=== PATIENT | male | born 1960 | race Two or more races ===

== ENCOUNTER 2016-11-20 19:25 | Inpatient (IN) | payer OTHER ==
[2016-11-20 21:53] VITALS: BMI 31.7
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
[2016-11-20] MEDS ORDERED: MENTHOL/PHENOL 1 EACH UD MM PRN (22:08)
[2016-11-20] MEDS ORDERED: NICOTINE POLACRILEX 2 MG GUM BC PRN (22:08)
[2016-11-20] MEDS ORDERED: MAGNESIUM CITRATE 300 ML BOTTLE PO PRN (22:08)
[2016-11-20] MEDS ORDERED: MAGNESIUM HYDROX 2400MG/30ML ORAL SUSPENSION 30 ML CUP PO PRN (22:08)
[2016-11-20] MEDS ORDERED: chlordiazePOXIDE HCL 25 MG CAPSULE PO PRN (22:08)
[2016-11-20] MEDS ORDERED: diphenhydrAMINE HCL 50 MG CAPSULE PO PRN (22:08)
[2016-11-20] MEDS ORDERED: guaiFENesin/D-METHORPHAN HB 10 ML UNIT-DOSE CUPS PO PRN (22:08)
[2016-11-20] MEDS ORDERED: ACETAMINOPHEN 325 MG TABLET (FP) PO PRN (22:08)
[2016-11-20] MEDS ORDERED: P-EPHED 60MG/TRIPROLIDI 2.5MG TABLET PO PRN (22:08)
[2016-11-20] MEDS ORDERED: METHADONE HCL 10 MG TABLET (FOR DETOX USE ONLY) PO ONE ×2 (22:08→23:00)
[2016-11-20] MEDS ORDERED: MAG HYDROX/AL HYDROX/SIMETH 30 ML UNIT-DOSE CUP PO PRN (22:08)
[2016-11-20] MEDS ORDERED: LOPERAMIDE HCL 2 MG CAPSULE PO PRN (22:08)
[2016-11-21] MEDS ORDERED: METHADONE HCL 10 MG TABLET (FOR DETOX USE ONLY) ONE (00:50)
[2016-11-21] MEDS: chlordiazePOXIDE HCL 25 MG CAPSULE PO SCH ×5 (00:54→22:04)
[2016-11-21] MEDS ORDERED: diazePAM 5 MG TABLET PO PRN (02:54)
[2016-11-21] MEDS ORDERED: METHADONE HCL 10 MG TABLET (FOR DETOX USE ONLY) PO ONE ×3 (02:54→23:00)
[2016-11-21 09:54] LABS: MCH 29.8 pg (25.7-33.7); MCHC 34.2 g/dl (32.0-35.9); MEAN CELL VOLUME 87.2 fl (80-96); MEAN PLT VOLUME 10.2 fl (7.5-11.1); PLATELET COUNT 181 K/MM3 (134-434); RDW 13.1 % (11.9-15.9); WHITE BLOOD COUNT 6.9 K/mm3 (4.0-10.0)
[2016-11-21] MEDS ORDERED: ASPIRIN 81 MG CHEWABLE TABLETS PO SCH (10:00)
[2016-11-21] MEDS ORDERED: METHADONE HCL 10 MG TABLET (FOR DETOX USE ONLY) PO SCH (10:00)
[2016-11-21] MEDS ORDERED: NICOTINE 21 MG/24 HOURS TOPICAL PATCH TD SCH (10:00)
[2016-11-21] MEDS ORDERED: PRENATAL VITAMINS W/ FOLIC ACID TABLET (FP) PO SCH (10:00)
[2016-11-21 10:29] LABS: ALBUMIN 3.5 g/dl (3.4-5.0); ALK PHOS 86 U/L (45-117); ANION GAP 8 (8-16); BILIRUBIN,TOTAL 0.3 mg/dL (0.2-1.0); CALCIUM 8.9 mg/dL (8.5-10.1); CO2 29 mmol/L (21-32); CREATININE 0.9 mg/dL (0.7-1.3); GLUCOSE,RANDOM 87 mg/dL (74-106); SGOT/AST 14 U/L (15-37); SGPT/ALT 17 U/L (12-78); TOT PROT 6.4 g/dl (6.4-8.2)
[2016-11-21] MEDS: metFORMIN HCL 500 MG TABLET (FP) PO SCH ×2 (10:32→17:19)
--- NOTE | 2016-11-21 11:48 | PN ---
[facility] CIWA - CIWA Score Nausea/Vomitin-No Nausea/No Vomiting Muscle Tremors: 4-Moderate,w/Arms Extend Anxiety: 4-Mod. Anxious/Guarded Agitation: 4-Moderately Restless Paroxysmal Sweats: 1-Minimal Palms Moist Orientation: 0-Oriented Tacttile Disturbances: 3-Moderate Itch/Numb/Burn Auditory Disturbances: 0-None Visual Disturbances: 0-None Headache: 0-None Present CIWA-Ar Total Score: 16 S COWS - Scale Resting Pulse: 0= [place] 80 or Below Sweatin= Chills/Flushing Restless Observation: 3= Extraneous Movement Pupil Size: 2= Moderately Dilated Bone or Joint Aches: 4=Acute Joint/Muscle Pain Runny Nose/ Eye Tearin= Nasal Congestion GI Upset > 30mins: 1= Stomach Cramp Tremor Observation of Outstretched Hands: 1= Tremor [place], Not Seen Yawning Observation: 2= >3x During Session Anxiety or Irritability: 2=Irritable/Anxious Goose Flesh Skin: 0=Smooth Skin COWS Score: 17 [facility] Progress Note (SOAP) Subjective: ANXIETY,SWEATS,MUSCLE ACHES Objective: 11/21/16 12:18 Vital Signs Temperature 97.1 F L 11/21/16 11:47 Pulse Rate 58 L 11/21/16 11:47 Respiratory Rate 19 11/21/16 11:47 Blood Pressure 150/85 11/21/16 11:47 O2 Sat by Pulse Oximetry (%) Laboratory Last Values WBC 6.9 K/mm3 (4.0-10.0) 11/21/16 07:00 RBC 4.63 M/mm3 (4.00-5.60) 11/21/16 07:00 Hgb 13.8 GM/dL (11.7-16.9) 11/21/16 07:00 Hct 40.4 % (35.4-49) 11/21/16 07:00 MCV 87.2 fl (80-96) 11/21/16 07:00 MCHC 34.2 g/dl (32.0-35.9) 11/21/16 07:00 RDW 13.1 % (11.9-15.9) 11/21/16 07:00 Plt Count 181 K/MM3 (134-434) 11/21/16 07:00 MPV 10.2 fl (7.5-11.1) 11/21/16 07:00 Sodium 144 mmol/L (136-145) 11/21/16 07:00 Potassium 4.1 mmol/L (3.5-5.1) 11/21/16 07:00 Chloride 107 mmol/L (98-107) 11/21/16 07:00 Carbon Dioxide 29 mmol/L (21-32) 11/21/16 07:00 Anion Gap 8 (8-16) 11/21/16 07:00 BUN 20 mg/dL (7-18) H 11/21/16 07:00 Creatinine 0.9 mg/dL (0.7-1.3) 11/21/16 07:00 Creat Clearance w eGFR > 60 (>60) 11/21/16 07:00 Random Glucose 87 mg/dL (74-106) 11/21/16 07:00 Calcium 8.9 mg/dL (8.5-10.1) 11/21/16 07:00 Total Bilirubin 0.3 mg/dL (0.2-1.0) D 11/21/16 07:00 AST 14 U/L (15-37) L D 11/21/16 07:00 ALT 17 U/L (12-78) D 11/21/16 07:00 Alkaline Phosphatase 86 U/L (45-117) 11/21/16 07:00 Total Protein 6.4 g/dl (6.4-8.2) 11/21/16 07:00 Albumin 3.5 g/dl (3.4-5.0) 11/21/16 07:00 Assessment: 11/21/16 12:18 WITHDRAWAL SX Plan: CONTINUE DETOX
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
[2016-11-21] MEDS: CYCLOBENZAPRINE HCL 10 MG TABLET (FP) PO SCH ×2 (15:01→22:04)
[2016-11-21 20:34] LABS: URINE APPEARANCE CLEAR; URINE BILIRUBIN NEGATIVE (NEGATIVE); URINE BLOOD NEGATIVE (NEGATIVE); URINE COLOR LTYELLOW; URINE GLUCOSE (UA) NEGATIVE (NEGATIVE); URINE KETONE NEGATIVE (NEGATIVE); URINE NITRITE NEGATIVE (NEGATIVE); URINE PROTEIN NEGATIVE (NEGATIVE); URINE UROBILINOGEN NEGATIVE E.U./dl (0.2-1.0)
[2016-11-21 20:41] LABS: URINE LEUK ESTERASE TRACE (NEGATIVE)
[2016-11-21 20:46] LABS: URINE RBC <1 /hpf (0-3); URINE WBC 1 /hpf (3-5)
[2016-11-21] MEDS ORDERED: THIAMINE HCL 100 MG TABLET (FP) PO SCH (22:00)
[2016-11-21 22:42] VITALS: BP 150/88; PULSE 66; TEMP 97.6
--- NOTE | 2016-11-21 23:34 | EKG ---
Test Reason : Blood Pressure : / mmHG Vent. Rate : 049 BPM Atrial Rate : 049 BPM P-R Int : 214 ms QRS Dur : 098 ms QT Int : 460 ms P-R-T Axes : 028 057 027 degrees QTc Int : 415 ms SINUS BRADYCARDIA WITH 1ST DEGREE A-V BLOCK OTHERWISE NORMAL ECG NO PREVIOUS ECGS AVAILABLE Confirmed by PAIGE DIAZ, JIMI ([id number]) on 11/21/2016 11:34:08 PM Referred By: Duncan Mooney Confirmed By:JIMI GIBSON MD
[2016-11-22] MEDS: CYCLOBENZAPRINE HCL 10 MG TABLET (FP) PO SCH (06:13)
[2016-11-22] MEDS: chlordiazePOXIDE HCL 25 MG CAPSULE PO SCH (06:14)
--- NOTE | 2016-11-22 09:24 | DS ---
[facility] Detox Discharge Summary Admission Date: 11/20/16 Discharge Date: 11/22/16 - History Present History: Alcohol Dependence, Cocaine Dependence, Opioid Dependence Additional Comments: PT DECLINED TO CONTINUE WITH DETOX STATING THAT HE IS CRAVING AND WITHDRAWING AND STAYING HERE CANNOT HELP HIM. 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 ALERT O X3. PT SIGNED OUT AMA Pertinent Past History: TYPE 2 DM COPD - Physical Exam Results Vital Signs: Vital Signs Temperature 97.6 F 11/21/16 22:42 Pulse Rate 66 11/21/16 22:42 Respiratory Rate 18 11/22/16 03:30 Blood Pressure 150/88 11/21/16 22:42 O2 Sat by Pulse Oximetry (%) Pertinent Admission Physical Exam Findings: WITHDRAWAL SX Laboratory Last Values WBC 6.9 K/mm3 (4.0-10.0) 11/21/16 07:00 RBC 4.63 M/mm3 (4.00-5.60) 11/21/16 07:00 Hgb 13.8 GM/dL (11.7-16.9) 11/21/16 07:00 Hct 40.4 % (35.4-49) 11/21/16 07:00 MCV 87.2 fl (80-96) 11/21/16 07:00 MCHC 34.2 g/dl (32.0-35.9) 11/21/16 07:00 RDW 13.1 % (11.9-15.9) 11/21/16 07:00 Plt Count 181 K/MM3 (134-434) 11/21/16 07:00 MPV 10.2 fl (7.5-11.1) 11/21/16 07:00 Sodium 144 mmol/L (136-145) 11/21/16 07:00 Potassium 4.1 mmol/L (3.5-5.1) 11/21/16 07:00 Chloride 107 mmol/L (98-107) 11/21/16 07:00 Carbon Dioxide 29 mmol/L (21-32) 11/21/16 07:00 Anion Gap 8 (8-16) 11/21/16 07:00 BUN 20 mg/dL (7-18) H 11/21/16 07:00 Creatinine 0.9 mg/dL (0.7-1.3) 11/21/16 07:00 Creat Clearance w eGFR > 60 (>60) 11/21/16 07:00 POC Glucometer 81 UNITS (()) 11/21/16 16:27 Random Glucose 87 mg/dL (74-106) 11/21/16 07:00 Calcium 8.9 mg/dL (8.5-10.1) 11/21/16 07:00 Total Bilirubin 0.3 mg/dL (0.2-1.0) D 11/21/16 07:00 AST 14 U/L (15-37) L D 11/21/16 07:00 ALT 17 U/L (12-78) D 11/21/16 07:00 Alkaline Phosphatase 86 U/L (45-117) 11/21/16 07:00 Total Protein 6.4 g/dl (6.4-8.2) 11/21/16 07:00 Albumin 3.5 g/dl (3.4-5.0) 11/21/16 07:00 Urine Color Ltyellow 11/21/16 19:45 Urine Appearance Clear 11/21/16 19:45 Urine pH 6.0 (5.0-8.0) 11/21/16 19:45 Ur Specific [place] 1.012 (1.001-1.035) 11/21/16 19:45 Urine Protein Negative (NEGATIVE) 11/21/16 19:45 Urine Glucose (UA) Negative (NEGATIVE) 11/21/16 19:45 Urine Ketones Negative (NEGATIVE) 11/21/16 19:45 Urine Blood Negative (NEGATIVE) 11/21/16 19:45 Urine Nitrite Negative (NEGATIVE) 11/21/16 19:45 Urine Bilirubin Negative (NEGATIVE) 11/21/16 19:45 Urine Urobilinogen Negative E.U./dl (0.2-1.0) 11/21/16 19:45 Ur Leukocyte Esterase Trace (NEGATIVE) H 11/21/16 19:45 Urine RBC <1 /hpf (0-3) 11/21/16 19:45 Urine WBC 1 /hpf (3-5) 11/21/16 19:45 Ur Epithelial Cells Rare /hpf (FEW) 11/21/16 19:45 RPR Titer Nonreactive (NONREACTIVE) 11/21/16 07:00 - Medication Discharge Medications: Ambulatory Orders Aspirin [ASA -] 81 mg PO DAILY 11/20/16 Metformin HCl [Glucophage -] 500 mg PO BID 11/20/16 - Diagnosis (1) Alcohol dependence with uncomplicated withdrawal Current Visit: Yes Status: Acute (2) Cocaine dependence Current Visit: Yes Status: Acute Qualifiers: Substance use status: uncomplicated Qualified Code(s): F14.20 - Cocaine dependence, uncomplicated (3) Nicotine dependence Current Visit: Yes Status: Chronic Qualifiers: Nicotine product type: cigarettes Substance use status: uncomplicated Qualified Code(s): F17.210 - Nicotine dependence, cigarettes, uncomplicated (4) Opioid dependence with withdrawal Current Visit: Yes Status: Acute (5) Diabetes mellitus type II, controlled Current Visit: Yes Status: Chronic Qualifiers: Diabetes mellitus complication status: without complication Diabetes mellitus alf insulin use: without alf use Qualified Code(s): E11.9 - Type 2 diabetes mellitus without complications - AMA Did Patient Leave Against Medical Advice: Yes (AMA)
[2016-11-22] MEDS ORDERED: cloNIDine HCL 0.1 MG TABLET PO SCH (10:00)
[2016-11-22] MEDS ORDERED: METHADONE HCL 5 MG TABLET (FOR DETOX USE ONLY) PO SCH (10:00)
[2016-11-22] MEDS ORDERED: METHADONE HCL 10 MG TABLET (FOR DETOX USE ONLY) PO ONE (10:00)
[2016-11-22] MEDS ORDERED: chlordiazePOXIDE 5 MG CAPSULE PO SCH (23:00)
[2016-11-23] MEDS ORDERED: METHADONE HCL 5 MG TABLET (FOR DETOX USE ONLY) PO ONE (10:00)
[2016-11-23] MEDS ORDERED: chlordiazePOXIDE HCL 10 MG CAPSULE PO SCH (23:00)
[2016-11-24] MEDS ORDERED: METHADONE HCL 10 MG TABLET (FOR DETOX USE ONLY) PO SCH (10:00)
[2016-11-24] MEDS ORDERED: METHADONE HCL 5 MG TABLET (FOR DETOX USE ONLY) PO ONE (10:00)
[2016-11-25] MEDS ORDERED: METHADONE HCL 5 MG TABLET (FOR DETOX USE ONLY) PO SCH (06:00)
[2016-11-25] MEDS ORDERED: METHADONE HCL 10 MG TABLET (FOR DETOX USE ONLY) PO ONE (10:00)
[2016-11-26] MEDS ORDERED: METHADONE HCL 5 MG TABLET (FOR DETOX USE ONLY) PO ONE (06:00)
== END 2016-11-22 09:03 | disposition left against medical advice (07) | DRG 770 ==
LOC: YASAS 19:25 → Y3N 22:57
PROVIDERS: ADMIT Internal Medicine; ATTEND Internal Medicine
PROC: HZ2ZZZZ Detoxification Services for Substance Abuse Treatment (ICD-10-PCS; principal; 2016-11-22)
DX: F11.23 Opioid dependence with withdrawal (principal); F10.230 Alcohol dependence with withdrawal, uncomplicated; F14.20 Cocaine dependence, uncomplicated; F17.210 Nicotine dependence, cigarettes, uncomplicated; E11.9 Type 2 diabetes mellitus without complications; Z79.84 Long term (current) use of oral hypoglycemic drugs
CPT/HCPCS: 36415; 80053; 81003; 81015; 85027; 86593; 93005; 93010

== ENCOUNTER 2017-02-08 11:48 | Inpatient (IN) | payer OTHER ==
[2017-02-08 12:26] VITALS: BMI 29.5
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
[2017-02-08] MEDS ORDERED: MENTHOL/PHENOL 1 EACH UD MM PRN (17:50)
[2017-02-08] MEDS ORDERED: ACETAMINOPHEN 325 MG TABLET (FP) PO PRN (17:50)
[2017-02-08] MEDS ORDERED: NICOTINE POLACRILEX 4 MG GUM BC PRN (17:50)
[2017-02-08] MEDS ORDERED: diphenhydrAMINE HCL 50 MG CAPSULE PO PRN (17:50)
[2017-02-08] MEDS ORDERED: MAGNESIUM HYDROX 2400MG/30ML ORAL SUSPENSION 30 ML CUP PO PRN (17:50)
[2017-02-08] MEDS ORDERED: hydrOXYzine PAMOATE 25 MG CAPSULE (FP) PO PRN (17:50)
[2017-02-08] MEDS ORDERED: guaiFENesin/D-METHORPHAN HB 10 ML UNIT-DOSE CUPS PO PRN (17:50)
[2017-02-08] MEDS ORDERED: MAGNESIUM CITRATE 300 ML BOTTLE PO PRN (17:50)
[2017-02-08] MEDS ORDERED: P-EPHED 60MG/TRIPROLIDI 2.5MG TABLET PO PRN (17:50)
[2017-02-08] MEDS ORDERED: LOPERAMIDE HCL 2 MG CAPSULE PO PRN (17:50)
[2017-02-08] MEDS ORDERED: chlordiazePOXIDE HCL 25 MG CAPSULE PO PRN (17:50)
[2017-02-08] MEDS ORDERED: IBUPROFEN 400 MG TABLET (FP) PO PRN (17:50)
[2017-02-08] MEDS ORDERED: MAG HYDROX/AL HYDROX/SIMETH 30 ML UNIT-DOSE CUP PO PRN (17:50)
[2017-02-08] MEDS ORDERED: METHADONE HCL 10 MG TABLET (FOR DETOX USE ONLY) ONE (18:27)
[2017-02-08] MEDS ORDERED: METHADONE HCL 10 MG TABLET (FOR DETOX USE ONLY) PO ONE ×2 (18:45→23:00)
[2017-02-08 20:03] LABS: URINE APPEARANCE CLEAR; URINE BILIRUBIN NEGATIVE (NEGATIVE); URINE BLOOD NEGATIVE (NEGATIVE); URINE COLOR YELLOW; URINE GLUCOSE (UA) NEGATIVE (NEGATIVE); URINE KETONE TRACE (NEGATIVE); URINE LEUK ESTERASE NEGATIVE (NEGATIVE); URINE NITRITE NEGATIVE (NEGATIVE); URINE PROTEIN NEGATIVE (NEGATIVE); URINE UROBILINOGEN 2.0 E.U/dl E.U./dl (0.2-1.0)
[2017-02-08] MEDS: chlordiazePOXIDE HCL 25 MG CAPSULE PO SCH (22:15)
[2017-02-08] MEDS: THIAMINE HCL 100 MG TABLET (FP) PO SCH (22:16)
[2017-02-09] MEDS: chlordiazePOXIDE HCL 25 MG CAPSULE PO SCH ×4 (05:20→22:14)
[2017-02-09] MEDS ORDERED: cloNIDine HCL 0.1 MG TABLET PO PRN (06:50)
[2017-02-09] MEDS: metFORMIN HCL 500 MG TABLET (FP) PO SCH ×2 (07:11→17:25)
[2017-02-09] MEDS: INSULIN SLIDING SCALE (NOVOLOG) 1 VIAL SQ SCH ×2 (07:13→16:39)
--- NOTE | 2017-02-09 09:28 | PN ---
[facility] CIWA - CIWA Score Nausea/Vomitin Muscle Tremors: 3 Anxiety: 3 Agitation: 2 Paroxysmal Sweats: 1-Minimal Palms Moist Orientation: 0-Oriented Tacttile Disturbances: 1-Very Mild Itch/Numbness Auditory Disturbances: 1-Very Mild Visual Disturbances: 1-Very Mild Sensitivity Headache: 2-Mild CIWA-Ar Total Score: 17 BHS COWS - Scale Resting Pulse: 0= [place] 80 or Below Sweatin= Chills/Flushing Restless Observation: 3= Extraneous Movement Pupil Size: 1= Pupils >than Normal Bone or Joint Aches: 2= Severe Diffuse Aches Runny Nose/ Eye Tearin= Runny Nose/Eyes GI Upset > 30mins: 3= Vomiting/Diarrhea Tremor Observation of Outstretched Hands: 2= Slight Tremor Visible Yawning Observation: 1= 1-2x During Session Anxiety or Irritability: 2=Irritable/Anxious Goose Flesh Skin: 0=Smooth Skin COWS Score: 17 [facility] Progress Note (SOAP) Subjective: ALERT,IRRITABLE,ANXIOUS,INTERRUPTED SLEEP,TREMOR,PAIN IN THE BODY AND BACK Objective: 02/09/17 09:27 Vital Signs Temperature 97.5 F L 02/09/17 05:00 Pulse Rate 55 L 02/09/17 05:00 Respiratory Rate 16 02/09/17 05:00 Blood Pressure 171/84 02/09/17 05:00 O2 Sat by Pulse Oximetry (%) EKG NSR,NORMAL ECG Laboratory Last Values POC Glucometer 91 UNITS (()) 02/09/17 06:58 Urine Color Yellow 02/08/17 19:30 Urine Appearance Clear 02/08/17 19:30 Urine pH 6.0 (5.0-8.0) 02/08/17 19:30 Ur Specific [place] 1.020 (1.001-1.035) 02/08/17 19:30 Urine Protein Negative (NEGATIVE) 02/08/17 19:30 Urine Glucose (UA) Negative (NEGATIVE) 02/08/17 19:30 Urine Ketones Trace (NEGATIVE) H 02/08/17 19:30 Urine Blood Negative (NEGATIVE) 02/08/17 19:30 Urine Nitrite Negative (NEGATIVE) 02/08/17 19:30 Urine Bilirubin Negative (NEGATIVE) 02/08/17 19:30 Urine Urobilinogen 2.0 e.u/dl E.U./dl (0.2-1.0) 02/08/17 19:30 Ur Leukocyte Esterase Negative (NEGATIVE) 02/08/17 19:30 LABS PENDING Assessment: 02/09/17 09:27 WITHDRAWAL SYMPTOM Plan: CONTINUE DETOX,BGM MONITORING
[2017-02-09] MEDS ORDERED: METHADONE HCL 10 MG TABLET (FOR DETOX USE ONLY) PO SCH (10:00)
[2017-02-09] MEDS: ASPIRIN 81 MG CHEWABLE TABLETS PO SCH (10:24)
[2017-02-09] MEDS: PRENATAL VITAMINS W/ FOLIC ACID TABLET (FP) PO SCH (10:24)
--- NOTE | 2017-02-09 11:25 | EKG ---
Test Reason : Blood Pressure : / mmHG Vent. Rate : 062 BPM Atrial Rate : 062 BPM P-R Int : 184 ms QRS Dur : 094 ms QT Int : 426 ms P-R-T Axes : 067 063 060 degrees QTc Int : 432 ms NORMAL SINUS RHYTHM NORMAL ECG WHEN COMPARED WITH ECG OF 21-NOV-2016 00:57, [place] INTERVAL HAS DECREASED Confirmed by TIFFANY MINA MD ([id number]) on 02/09/2017 11:24:37 AM Referred By: Confirmed By:TIFFANY MINA MD
[2017-02-09 11:29] LABS: MCH 29.8 pg (25.7-33.7); MCHC 33.7 g/dl (32.0-35.9); MEAN CELL VOLUME 88.2 fl (80-96); PLATELET COUNT 178 K/MM3 (134-434); RDW 13.8 % (11.9-15.9); WHITE BLOOD COUNT 7.7 K/mm3 (4.0-10.0)
[2017-02-09 11:34] LABS: ALBUMIN 3.9 g/dl (3.4-5.0); ANION GAP 8 (8-16); BILIRUBIN,TOTAL 0.4 mg/dL (0.2-1.0); CALCIUM 9.3 mg/dL (8.5-10.1); CO2 32 mmol/L (21-32); COCKROFT - GAULT 132.29; CREATININE 0.8 mg/dL (0.7-1.3); GLUCOSE,RANDOM 90 mg/dL (74-106); SGOT/AST 15 U/L (15-37); SGPT/ALT 22 U/L (12-78); TOT PROT 7.3 g/dl (6.4-8.2)
[2017-02-09 11:35] LABS: ALK PHOS 95 U/L (45-117)
[2017-02-09] MEDS: THIAMINE HCL 100 MG TABLET (FP) PO SCH (22:14)
[2017-02-10] MEDS: INSULIN SLIDING SCALE (NOVOLOG) 1 VIAL SQ SCH (06:59)
[2017-02-10] MEDS: chlordiazePOXIDE HCL 25 MG CAPSULE PO SCH ×2 (06:59→10:37)
[2017-02-10] MEDS: metFORMIN HCL 500 MG TABLET (FP) PO SCH (06:59)
[2017-02-10] MEDS ORDERED: METHADONE HCL 5 MG TABLET (FOR DETOX USE ONLY) PO SCH (10:00)
[2017-02-10 10:18] VITALS: BP 145/93; PULSE 67; TEMP 97.5
[2017-02-10] MEDS: ASPIRIN 81 MG CHEWABLE TABLETS PO SCH (10:37)
[2017-02-10] MEDS: PRENATAL VITAMINS W/ FOLIC ACID TABLET (FP) PO SCH (10:38)
--- NOTE | 2017-02-10 14:09 | DS ---
[facility] Detox Discharge Summary Admission Date: 02/08/17 Discharge Date: 02/10/17 - History Present History: Alcohol Dependence, Cocaine Dependence, Opioid Dependence Additional Comments: ADVISED PATIENT TO FOLLOW-UP WITH [facility] FOR GENERAL MEDICAL ASSESSMENT. Pertinent Past History: NIDDM. - Physical Exam Results Vital Signs: Vital Signs Temperature 97.5 F L 02/10/17 10:18 Pulse Rate 67 02/10/17 10:18 Respiratory Rate 16 02/10/17 10:18 Blood Pressure 145/93 02/10/17 10:18 O2 Sat by Pulse Oximetry (%) Pertinent Admission Physical Exam Findings: WITHDRAWAL SYMPTOMS. Laboratory Last Values WBC 7.7 K/mm3 (4.0-10.0) 02/09/17 06:00 RBC 4.75 M/mm3 (4.00-5.60) 02/09/17 06:00 Hgb 14.1 GM/dL (11.7-16.9) 02/09/17 06:00 Hct 41.9 % (35.4-49) 02/09/17 06:00 MCV 88.2 fl (80-96) 02/09/17 06:00 MCHC 33.7 g/dl (32.0-35.9) 02/09/17 06:00 RDW 13.8 % (11.9-15.9) 02/09/17 06:00 Plt Count 178 K/MM3 (134-434) 02/09/17 06:00 MPV 11.0 fl (7.5-11.1) 02/09/17 06:00 Sodium 143 mmol/L (136-145) 02/09/17 06:00 Potassium 4.0 mmol/L (3.5-5.1) 02/09/17 06:00 Chloride 103 mmol/L (98-107) 02/09/17 06:00 Carbon Dioxide 32 mmol/L (21-32) 02/09/17 06:00 Anion Gap 8 (8-16) 02/09/17 06:00 BUN 12 mg/dL (7-18) D 02/09/17 06:00 Creatinine 0.8 mg/dL (0.7-1.3) 02/09/17 06:00 Creat Clearance w eGFR > 60 (>60) 02/09/17 06:00 POC Glucometer 104 UNITS (()) 02/10/17 06:48 Random Glucose 90 mg/dL (74-106) 02/09/17 06:00 Calcium 9.3 mg/dL (8.5-10.1) 02/09/17 06:00 Total Bilirubin 0.4 mg/dL (0.2-1.0) D 02/09/17 06:00 AST 15 U/L (15-37) 02/09/17 06:00 ALT 22 U/L (12-78) D 02/09/17 06:00 Alkaline Phosphatase 95 U/L (45-117) 02/09/17 06:00 Total Protein 7.3 g/dl (6.4-8.2) 02/09/17 06:00 Albumin 3.9 g/dl (3.4-5.0) 02/09/17 06:00 Urine Color Yellow 02/08/17 19:30 Urine Appearance Clear 02/08/17 19:30 Urine pH 6.0 (5.0-8.0) 02/08/17 19:30 Ur Specific [place] 1.020 (1.001-1.035) 02/08/17 19:30 Urine Protein Negative (NEGATIVE) 02/08/17 19:30 Urine Glucose (UA) Negative (NEGATIVE) 02/08/17 19:30 Urine Ketones Trace (NEGATIVE) H 02/08/17 19:30 Urine Blood Negative (NEGATIVE) 02/08/17 19:30 Urine Nitrite Negative (NEGATIVE) 02/08/17 19:30 Urine Bilirubin Negative (NEGATIVE) 02/08/17 19:30 Urine Urobilinogen 2.0 e.u/dl E.U./dl (0.2-1.0) 02/08/17 19:30 Ur Leukocyte Esterase Negative (NEGATIVE) 02/08/17 19:30 RPR Titer Nonreactive (NONREACTIVE) 02/09/17 06:00 LABS NOTED. - Treatment Hospital Course: Detoxed Safely - Medication Discharge Medications: Ambulatory Orders Aspirin [ASA -] 81 mg PO DAILY 11/20/16 Metformin HCl [Glucophage -] 500 mg PO BID 11/20/16 - Diagnosis (1) Alcohol dependence with uncomplicated withdrawal Status: Acute (2) Cocaine dependence Status: Acute Qualifiers: Substance use status: uncomplicated Qualified Code(s): F14.20 - Cocaine dependence, uncomplicated (3) Diabetes mellitus type II, controlled Status: Chronic Qualifiers: Diabetes mellitus complication status: without complication Diabetes mellitus watermelon inspector insulin use: without [place] [facility] use Qualified Code(s): E11.9 - Type 2 diabetes mellitus without complications (4) Nicotine dependence Status: Chronic Qualifiers: Nicotine product type: cigarettes Substance use status: uncomplicated Qualified Code(s): F17.210 - Nicotine dependence, cigarettes, uncomplicated (5) Opioid dependence with withdrawal Status: Acute (6) rt. leg limp Status: Chronic - AMA Did Patient Leave Against Medical Advice: Yes (PATIENT DID NOT WANT TO STAY TO COMPLETE DETOX REGIMEN.)
[2017-02-10] MEDS ORDERED: chlordiazePOXIDE 5 MG CAPSULE PO SCH (23:00)
[2017-02-11] MEDS ORDERED: chlordiazePOXIDE HCL 10 MG CAPSULE PO SCH (23:00)
[2017-02-12] MEDS ORDERED: METHADONE HCL 10 MG TABLET (FOR DETOX USE ONLY) PO SCH (10:00)
[2017-02-13] MEDS ORDERED: METHADONE HCL 5 MG TABLET (FOR DETOX USE ONLY) PO SCH (06:00)
== END 2017-02-10 11:25 | disposition left against medical advice (07) | DRG 770 ==
LOC: YASAS 11:48 → Y6N 17:34
PROVIDERS: ADMIT Internal Medicine Addiction Medicine; ATTEND Internal Medicine Addiction Medicine
PROC: HZ2ZZZZ Detoxification Services for Substance Abuse Treatment (ICD-10-PCS; principal; 2017-02-10)
DX: F11.23 Opioid dependence with withdrawal (principal); F10.230 Alcohol dependence with withdrawal, uncomplicated; F14.20 Cocaine dependence, uncomplicated; F17.210 Nicotine dependence, cigarettes, uncomplicated; E11.9 Type 2 diabetes mellitus without complications; Z79.84 Long term (current) use of oral hypoglycemic drugs; R26.2 Difficulty in walking, not elsewhere classified
CPT/HCPCS: 36415; 80053; 81003; 85027; 86593; 93005; 93010

== ENCOUNTER 2017-10-25 09:02 | Inpatient (IN) | payer OTHER ==
[2017-10-25 10:33] VITALS: BMI 27.4
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
[2017-10-25] MEDS ORDERED: hydrOXYzine PAMOATE 50 MG CAPSULE (FP) PO PRN (12:03)
[2017-10-25] MEDS ORDERED: MAG HYDROX/AL HYDROX/SIMETH 30 ML UNIT-DOSE CUP PO PRN (12:03)
[2017-10-25] MEDS ORDERED: MENTHOL/PHENOL 1 EACH UD MM PRN (12:03)
[2017-10-25] MEDS ORDERED: P-EPHED 60MG/TRIPROLIDI 2.5MG TABLET PO PRN (12:03)
[2017-10-25] MEDS ORDERED: ACETAMINOPHEN 325 MG TABLET (FP) PO PRN (12:03)
[2017-10-25] MEDS ORDERED: IBUPROFEN 400 MG TABLET (FP) PO PRN (12:03)
[2017-10-25] MEDS ORDERED: MAGNESIUM CITRATE 300 ML BOTTLE PO PRN (12:03)
[2017-10-25] MEDS ORDERED: MAGNESIUM HYDROX 2400MG/30ML ORAL SUSPENSION 30 ML CUP PO PRN (12:03)
[2017-10-25] MEDS ORDERED: chlordiazePOXIDE HCL 25 MG CAPSULE PO PRN (12:03)
[2017-10-25] MEDS ORDERED: guaiFENesin/D-METHORPHAN HB 10 ML UNIT-DOSE CUPS PO PRN (12:03)
[2017-10-25] MEDS ORDERED: LOPERAMIDE HCL 2 MG CAPSULE PO PRN (12:03)
[2017-10-25] MEDS ORDERED: METHADONE HCL 10 MG TABLET PO ONE (12:08)
[2017-10-25] MEDS ORDERED: chlordiazePOXIDE HCL 25 MG CAPSULE PO ONE (12:19)
[2017-10-25] MEDS ORDERED: METHADONE 40 MG, METHADONE 30 MG PO ONE (12:21)
[2017-10-25] MEDS ORDERED: METHADONE HCL 40 MG DISPERSABLE TABLET ONE (12:25)
[2017-10-25] MEDS ORDERED: METHADONE HCL 10 MG TABLET ONE (12:25)
--- NOTE | 2017-10-25 15:36 | EKG ---
Test Reason : Blood Pressure : / mmHG Vent. Rate : 053 BPM Atrial Rate : 053 BPM P-R Int : 186 ms QRS Dur : 100 ms QT Int : 468 ms P-R-T Axes : 070 063 040 degrees QTc Int : 439 ms SINUS BRADYCARDIA OTHERWISE NORMAL ECG WHEN COMPARED WITH ECG OF 08-FEB-2017 17:38, NO SIGNIFICANT CHANGE WAS FOUND Confirmed by FARZANA MARTINZE MD ([id number]) on 10/25/2017 3:36:02 PM Referred By: Confirmed By:FARZANA MARTINEZ MD
[2017-10-25 15:51] LABS: URINE APPEARANCE CLEAR; URINE BILIRUBIN NEGATIVE (NEGATIVE); URINE BLOOD NEGATIVE (NEGATIVE); URINE COLOR DKYELLOW; URINE GLUCOSE (UA) NEGATIVE (NEGATIVE); URINE KETONE TRACE (NEGATIVE); URINE NITRITE NEGATIVE (NEGATIVE); URINE PROTEIN NEGATIVE (NEGATIVE); URINE UROBILINOGEN 4.0 E.U/dl mg/dL (0.2-1.0)
[2017-10-25 15:52] LABS: URINE LEUK ESTERASE 2+ (NEGATIVE)
[2017-10-25 16:06] LABS: EPI CELLS RARE /HPF (FEW); URINE MUCUS RARE
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
[2017-10-25] MEDS: chlordiazePOXIDE HCL 25 MG CAPSULE PO SCH ×2 (17:08→22:22)
[2017-10-25] MEDS ORDERED: ZOLPIDEM TARTRATE 5 MG TABLET PO PRN (22:00)
[2017-10-25] MEDS: THIAMINE HCL 100 MG TABLET (FP) PO SCH (22:21)
[2017-10-26] MEDS ORDERED: METHADONE HCL 10 MG TABLET ONE (04:29)
[2017-10-26] MEDS ORDERED: METHADONE HCL 40 MG DISPERSABLE TABLET ONE (04:31)
[2017-10-26] MEDS: chlordiazePOXIDE HCL 25 MG CAPSULE PO SCH ×4 (05:00→22:02)
[2017-10-26] MEDS: METHADONE 40 MG, METHADONE 30 MG PO SCH (05:00)
[2017-10-26] MEDS ORDERED: METHADONE HCL 10 MG TABLET PO SCH (06:00)
[2017-10-26] MEDS: PRENATAL VITAMINS W/ FOLIC ACID TABLET (FP) PO SCH (10:02)
[2017-10-26 10:03] LABS: HEMATOCRIT 41.7 % (35.4-49); HEMOGLOBIN 13.7 GM/dL (11.7-16.9); MCH 29.2 pg (25.7-33.7); MCHC 32.8 g/dl (32.0-35.9); MEAN PLT VOLUME 10.6 fl (7.5-11.1); PLATELET COUNT 200 K/MM3 (134-434); RBC 4.69 M/mm3 (4.00-5.60); RDW 13.3 % (11.9-15.9); WHITE BLOOD COUNT 7.4 K/mm3 (4.0-10.0)
[2017-10-26] MEDS: NICOTINE 21 MG/24 HOURS TOPICAL PATCH TD SCH (10:03)
[2017-10-26 10:42] LABS: CHLORIDE 103 mmol/L (98-107); POTASSIUM 3.9 mmol/L (3.5-5.1); SODIUM 138 mmol/L (136-145)
[2017-10-26 10:56] LABS: ALBUMIN 3.8 g/dl (3.4-5.0); ALK PHOS 74 U/L (45-117); ANION GAP 8 (8-16); BILIRUBIN,TOTAL 0.5 mg/dL (0.2-1.0); BLOOD UREA NITROGEN 18 mg/dL (7-18); CALCIUM 8.8 mg/dL (8.5-10.1); CO2 27 mmol/L (21-32); GLUCOSE,RANDOM 87 mg/dL (74-106); SGOT/AST 14 U/L (15-37); SGPT/ALT 19 U/L (12-78); TOT PROT 7.3 g/dl (6.4-8.2)
--- NOTE | 2017-10-26 11:18 | PN ---
[facility] CIWA - CIWA Score Nausea/Vomitin-No Nausea/No Vomiting Muscle Tremors: 4-Moderate,w/Arms Extend Anxiety: 4-Mod. Anxious/Guarded Agitation: 4-Moderately Restless Paroxysmal Sweats: 1-Minimal Palms Moist Orientation: 0-Oriented Tacttile Disturbances: 3-Moderate Itch/Numb/Burn Auditory Disturbances: 0-None Visual Disturbances: 0-None Headache: 0-None Present CIWA-Ar Total Score: 16 BHS Progress Note (SOAP) Subjective: ANXIETY,SWEATS,FATIGUE. Objective: 10/26/17 11:17 Vital Signs Temperature 98.0 F 10/26/17 09:21 Pulse Rate 61 10/26/17 09:21 Respiratory Rate 18 10/26/17 09:21 Blood Pressure 122/80 10/26/17 09:21 O2 Sat by Pulse Oximetry (%) Laboratory Last Values WBC 7.4 K/mm3 (4.0-10.0) 10/26/17 06:00 RBC 4.69 M/mm3 (4.00-5.60) 10/26/17 06:00 Hgb 13.7 GM/dL (11.7-16.9) 10/26/17 06:00 Hct 41.7 % (35.4-49) 10/26/17 06:00 MCV 89.0 fl (80-96) 10/26/17 06:00 MCH 29.2 pg (25.7-33.7) 10/26/17 06:00 MCHC 32.8 g/dl (32.0-35.9) 10/26/17 06:00 RDW 13.3 % (11.9-15.9) 10/26/17 06:00 Plt Count 200 K/MM3 (134-434) 10/26/17 06:00 MPV 10.6 fl (7.5-11.1) 10/26/17 06:00 Sodium 138 mmol/L (136-145) 10/26/17 06:00 Potassium 3.9 mmol/L (3.5-5.1) 10/26/17 06:00 Chloride 103 mmol/L (98-107) 10/26/17 06:00 Carbon Dioxide 27 mmol/L (21-32) 10/26/17 06:00 Anion Gap 8 (8-16) 10/26/17 06:00 BUN 18 mg/dL (7-18) D 10/26/17 06:00 Creatinine 1.0 mg/dL (0.7-1.3) D 10/26/17 06:00 Creat Clearance w eGFR > 60 (>60) 10/26/17 06:00 POC Glucometer 95 UNITS (80-120) 10/26/17 06:12 Random Glucose 87 mg/dL (74-106) 10/26/17 06:00 Calcium 8.8 mg/dL (8.5-10.1) 10/26/17 06:00 Total Bilirubin 0.5 mg/dL (0.2-1.0) D 10/26/17 06:00 AST 14 U/L (15-37) L 10/26/17 06:00 ALT 19 U/L (12-78) 10/26/17 06:00 Alkaline Phosphatase 74 U/L (45-117) D 10/26/17 06:00 Total Protein 7.3 g/dl (6.4-8.2) 10/26/17 06:00 Albumin 3.8 g/dl (3.4-5.0) 10/26/17 06:00 Urine Color Dkyellow 10/25/17 13:00 Urine Appearance Clear 10/25/17 13:00 Urine pH 6.0 (5.0-8.0) 10/25/17 13:00 Ur Specific [place] 1.028 (1.001-1.035) 10/25/17 13:00 Urine Protein Negative (NEGATIVE) 10/25/17 13:00 Urine Glucose (UA) Negative (NEGATIVE) 10/25/17 13:00 Urine Ketones Trace (NEGATIVE) H 10/25/17 13:00 Urine Blood Negative (NEGATIVE) 10/25/17 13:00 Urine Nitrite Negative (NEGATIVE) 10/25/17 13:00 Urine Bilirubin Negative (NEGATIVE) 10/25/17 13:00 Urine Urobilinogen 4.0 e.u/dl mg/dL (0.2-1.0) 10/25/17 13:00 Urine WBC (Auto) 17 /hpf (3-5) 10/25/17 13:00 Urine RBC (Auto) 2 /hpf (0-3) 10/25/17 13:00 Ur Epithelial Cells Rare /HPF (FEW) 10/25/17 13:00 Urine Mucus Rare 10/25/17 13:00 UA-WBC 17 Assessment: 10/26/17 11:18 WITHDRAWAL SX Plan: CONTINUE DETOX REPEAT [facility]
[2017-10-26] MEDS: THIAMINE HCL 100 MG TABLET (FP) PO SCH (22:02)
[2017-10-27] MEDS ORDERED: METHADONE HCL 10 MG TABLET ONE (04:41)
[2017-10-27] MEDS ORDERED: METHADONE HCL 40 MG DISPERSABLE TABLET ONE (04:42)
[2017-10-27] MEDS: chlordiazePOXIDE HCL 25 MG CAPSULE PO SCH ×2 (05:09→10:21)
[2017-10-27] MEDS: METHADONE 40 MG, METHADONE 30 MG PO SCH (05:09)
[2017-10-27] MEDS: NICOTINE 21 MG/24 HOURS TOPICAL PATCH TD SCH (10:21)
[2017-10-27] MEDS: PRENATAL VITAMINS W/ FOLIC ACID TABLET (FP) PO SCH (10:21)
[2017-10-27] MEDS: NICOTINE POLACRILEX 4 MG GUM BUC PRN (10:23)
--- NOTE | 2017-10-27 12:57 | PN ---
S CIWA - CIWA Score Nausea/Vomitin Muscle Tremors: 2 Anxiety: 2 Agitation: 2 Paroxysmal Sweats: 2 Orientation: 1-Uncertain about Date Tacttile Disturbances: 2-Mild Itch/Numbness/Burn Auditory Disturbances: 0-None Visual Disturbances: 0-None Headache: 2-Mild CIWA-Ar Total Score: 15 BHS Progress Note (SOAP) Subjective: Shakes, sweats, nausea, muscle aches and headache Objective: 10/27/17 12:56 Vital Signs 10/27/17 10/27/17 06:16 09:42 Temperature 97 F L 98.1 F Pulse Rate 55 L 54 L Respiratory 18 18 Rate Blood Pressure 145/87 119/76 Laboratory Last Values WBC 7.4 K/mm3 (4.0-10.0) 10/26/17 06:00 RBC 4.69 M/mm3 (4.00-5.60) 10/26/17 06:00 Hgb 13.7 GM/dL (11.7-16.9) 10/26/17 06:00 Hct 41.7 % (35.4-49) 10/26/17 06:00 MCV 89.0 fl (80-96) 10/26/17 06:00 MCH 29.2 pg (25.7-33.7) 10/26/17 06:00 MCHC 32.8 g/dl (32.0-35.9) 10/26/17 06:00 RDW 13.3 % (11.9-15.9) 10/26/17 06:00 Plt Count 200 K/MM3 (134-434) 10/26/17 06:00 MPV 10.6 fl (7.5-11.1) 10/26/17 06:00 Sodium 138 mmol/L (136-145) 10/26/17 06:00 Potassium 3.9 mmol/L (3.5-5.1) 10/26/17 06:00 Chloride 103 mmol/L (98-107) 10/26/17 06:00 Carbon Dioxide 27 mmol/L (21-32) 10/26/17 06:00 Anion Gap 8 (8-16) 10/26/17 06:00 BUN 18 mg/dL (7-18) D 10/26/17 06:00 Creatinine 1.0 mg/dL (0.7-1.3) D 10/26/17 06:00 Creat Clearance w eGFR > 60 (>60) 10/26/17 06:00 POC Glucometer 96 UNITS (80-120) 10/27/17 05:11 Random Glucose 87 mg/dL (74-106) 10/26/17 06:00 Calcium 8.8 mg/dL (8.5-10.1) 10/26/17 06:00 Total Bilirubin 0.5 mg/dL (0.2-1.0) D 10/26/17 06:00 AST 14 U/L (15-37) L 10/26/17 06:00 ALT 19 U/L (12-78) 10/26/17 06:00 Alkaline Phosphatase 74 U/L (45-117) D 10/26/17 06:00 Total Protein 7.3 g/dl (6.4-8.2) 10/26/17 06:00 Albumin 3.8 g/dl (3.4-5.0) 10/26/17 06:00 Urine Color Dkyellow 10/25/17 13:00 Urine Appearance Clear 10/25/17 13:00 Urine pH 6.0 (5.0-8.0) 10/25/17 13:00 Ur Specific [place] 1.028 (1.001-1.035) 10/25/17 13:00 Urine Protein Negative (NEGATIVE) 10/25/17 13:00 Urine Glucose (UA) Negative (NEGATIVE) 10/25/17 13:00 Urine Ketones Trace (NEGATIVE) H 10/25/17 13:00 Urine Blood Negative (NEGATIVE) 10/25/17 13:00 Urine Nitrite Negative (NEGATIVE) 10/25/17 13:00 Urine Bilirubin Negative (NEGATIVE) 10/25/17 13:00 Urine Urobilinogen 4.0 e.u/dl mg/dL (0.2-1.0) 10/25/17 13:00 Urine WBC (Auto) 17 /hpf (3-5) 10/25/17 13:00 Urine RBC (Auto) 2 /hpf (0-3) 10/25/17 13:00 Ur Epithelial Cells Rare /HPF (FEW) 10/25/17 13:00 Urine Mucus Rare 10/25/17 13:00 RPR Titer Nonreactive (NONREACTIVE) 10/26/17 06:00 Labs noted Assessment: 10/27/17 12:56 withdrawal sx Plan: continue detox
[2017-10-27] MEDS: chlordiazePOXIDE 5 MG CAPSULE PO SCH ×2 (17:36→22:12)
[2017-10-27] MEDS: THIAMINE HCL 100 MG TABLET (FP) PO SCH (22:12)
[2017-10-28] MEDS ORDERED: METHADONE HCL 10 MG TABLET ONE (04:43)
[2017-10-28] MEDS ORDERED: METHADONE HCL 40 MG DISPERSABLE TABLET ONE (04:44)
[2017-10-28] MEDS: chlordiazePOXIDE 5 MG CAPSULE PO SCH ×2 (05:09→10:03)
[2017-10-28] MEDS: METHADONE 40 MG, METHADONE 30 MG PO SCH (05:09)
[2017-10-28] MEDS: PRENATAL VITAMINS W/ FOLIC ACID TABLET (FP) PO SCH (10:03)
[2017-10-28] MEDS: NICOTINE 21 MG/24 HOURS TOPICAL PATCH TD SCH (10:03)
[2017-10-28] MEDS: NICOTINE POLACRILEX 4 MG GUM BUC PRN (11:21)
--- NOTE | 2017-10-28 13:34 | PN ---
[facility] Progress Note (SOAP) Subjective: sweating, interrupted sleep, restless Objective: 10/28/17 13:32 Last Vital Signs Temp Pulse Resp BP Pulse Ox 96.8 F L 62 16 127/88 10/28/17 09:53 10/28/17 09:53 10/28/17 09:53 10/28/17 09:53 Laboratory Last Values WBC 7.4 K/mm3 (4.0-10.0) 10/26/17 06:00 RBC 4.69 M/mm3 (4.00-5.60) 10/26/17 06:00 Hgb 13.7 GM/dL (11.7-16.9) 10/26/17 06:00 Hct 41.7 % (35.4-49) 10/26/17 06:00 MCV 89.0 fl (80-96) 10/26/17 06:00 MCH 29.2 pg (25.7-33.7) 10/26/17 06:00 MCHC 32.8 g/dl (32.0-35.9) 10/26/17 06:00 RDW 13.3 % (11.9-15.9) 10/26/17 06:00 Plt Count 200 K/MM3 (134-434) 10/26/17 06:00 MPV 10.6 fl (7.5-11.1) 10/26/17 06:00 Sodium 138 mmol/L (136-145) 10/26/17 06:00 Potassium 3.9 mmol/L (3.5-5.1) 10/26/17 06:00 Chloride 103 mmol/L (98-107) 10/26/17 06:00 Carbon Dioxide 27 mmol/L (21-32) 10/26/17 06:00 Anion Gap 8 (8-16) 10/26/17 06:00 BUN 18 mg/dL (7-18) D 10/26/17 06:00 Creatinine 1.0 mg/dL (0.7-1.3) D 10/26/17 06:00 Creat Clearance w eGFR > 60 (>60) 10/26/17 06:00 POC Glucometer 107 UNITS (80-120) 10/28/17 05:11 Random Glucose 87 mg/dL (74-106) 10/26/17 06:00 Calcium 8.8 mg/dL (8.5-10.1) 10/26/17 06:00 Total Bilirubin 0.5 mg/dL (0.2-1.0) D 10/26/17 06:00 AST 14 U/L (15-37) L 10/26/17 06:00 ALT 19 U/L (12-78) 10/26/17 06:00 Alkaline Phosphatase 74 U/L (45-117) D 10/26/17 06:00 Total Protein 7.3 g/dl (6.4-8.2) 10/26/17 06:00 Albumin 3.8 g/dl (3.4-5.0) 10/26/17 06:00 Urine Color Dkyellow 10/25/17 13:00 Urine Appearance Clear 10/25/17 13:00 Urine pH 6.0 (5.0-8.0) 10/25/17 13:00 Ur Specific [place] 1.028 (1.001-1.035) 10/25/17 13:00 Urine Protein Negative (NEGATIVE) 10/25/17 13:00 Urine Glucose (UA) Negative (NEGATIVE) 10/25/17 13:00 Urine Ketones Trace (NEGATIVE) H 10/25/17 13:00 Urine Blood Negative (NEGATIVE) 10/25/17 13:00 Urine Nitrite Negative (NEGATIVE) 10/25/17 13:00 Urine Bilirubin Negative (NEGATIVE) 10/25/17 13:00 Urine Urobilinogen 4.0 e.u/dl mg/dL (0.2-1.0) 10/25/17 13:00 Urine WBC (Auto) 17 /hpf (3-5) 10/25/17 13:00 Urine RBC (Auto) 2 /hpf (0-3) 10/25/17 13:00 Ur Epithelial Cells Rare /HPF (FEW) 10/25/17 13:00 Urine Mucus Rare 10/25/17 13:00 RPR Titer Nonreactive (NONREACTIVE) 10/26/17 06:00 Labs noted Assessment: 10/28/17 13:33 withdrawal sx Plan: continue detox
[2017-10-28] MEDS: chlordiazePOXIDE HCL 10 MG CAPSULE PO SCH ×2 (16:55→22:03)
[2017-10-28] MEDS: THIAMINE HCL 100 MG TABLET (FP) PO SCH (22:03)
[2017-10-29] MEDS ORDERED: METHADONE HCL 10 MG TABLET ONE (04:08)
[2017-10-29] MEDS ORDERED: METHADONE HCL 40 MG DISPERSABLE TABLET ONE (04:09)
[2017-10-29] MEDS: chlordiazePOXIDE HCL 10 MG CAPSULE PO SCH ×2 (05:25→10:11)
[2017-10-29] MEDS: METHADONE 40 MG, METHADONE 30 MG PO SCH (05:25)
[2017-10-29] MEDS: PRENATAL VITAMINS W/ FOLIC ACID TABLET (FP) PO SCH (10:11)
[2017-10-29] MEDS: NICOTINE 21 MG/24 HOURS TOPICAL PATCH TD SCH (10:11)
--- NOTE | 2017-10-29 10:30 | DS ---
[facility] Detox Discharge Summary Admission Date: 10/25/17 Discharge Date: 10/29/17 - History Present History: Alcohol Dependence, Cocaine Dependence, Opioid Dependence, MMTP Pertinent Past History: DMT2 - Physical Exam Results Vital Signs: Vital Signs Temperature 98.3 F 10/29/17 06:02 Pulse Rate 56 L 10/29/17 06:02 Respiratory Rate 18 10/29/17 06:02 Blood Pressure 167/86 10/29/17 06:02 O2 Sat by Pulse Oximetry (%) Pertinent Admission Physical Exam Findings: Withdrawal symptoms Laboratory Tests 10/25/17 10/25/17 10/26/17 11:47 13:00 06:00 WBC 7.4 RBC 4.69 Hgb 13.7 Hct 41.7 MCV 89.0 MCH 29.2 MCHC 32.8 RDW 13.3 Plt Count 200 MPV 10.6 Sodium Potassium Chloride Carbon Dioxide Anion Gap BUN Creatinine Creat Clearance w eGFR POC Glucometer 104 Random Glucose Calcium Total Bilirubin AST ALT Alkaline Phosphatase Total Protein Albumin Urine Color Dkyellow Urine Appearance Clear Urine pH 6.0 Ur Specific [place] 1.028 Urine Protein Negative Urine Glucose (UA) Negative Urine Ketones Trace H Urine Blood Negative Urine Nitrite Negative Urine Bilirubin Negative Urine Urobilinogen 4.0 e.u/dl Urine WBC (Auto) 17 Urine RBC (Auto) 2 Ur Epithelial Cells Rare Urine Mucus Rare RPR Titer 10/26/17 10/26/17 10/26/17 06:00 06:00 06:12 WBC RBC Hgb Hct MCV MCH MCHC RDW Plt Count MPV Sodium 138 Potassium 3.9 Chloride 103 Carbon Dioxide 27 Anion Gap 8 BUN 18 D Creatinine 1.0 D Creat Clearance w eGFR > 60 POC Glucometer 95 Random Glucose 87 Calcium 8.8 Total Bilirubin 0.5 D AST 14 L ALT 19 Alkaline Phosphatase 74 D Total Protein 7.3 Albumin 3.8 Urine Color Urine Appearance Urine pH Ur Specific [place] Urine Protein Urine Glucose (UA) Urine Ketones Urine Blood Urine Nitrite Urine Bilirubin Urine Urobilinogen Urine WBC (Auto) Urine RBC (Auto) Ur Epithelial Cells Urine Mucus RPR Titer Nonreactive 10/27/17 10/28/17 10/29/17 05:11 05:11 05:55 WBC RBC Hgb Hct MCV MCH MCHC RDW Plt Count MPV Sodium Potassium Chloride Carbon Dioxide Anion Gap BUN Creatinine Creat Clearance w eGFR POC Glucometer 96 107 99 Random Glucose Calcium Total Bilirubin AST ALT Alkaline Phosphatase Total Protein Albumin Urine Color Urine Appearance Urine pH Ur Specific [place] Urine Protein Urine Glucose (UA) Urine Ketones Urine Blood Urine Nitrite Urine Bilirubin Urine Urobilinogen Urine WBC (Auto) Urine RBC (Auto) Ur Epithelial Cells Urine Mucus RPR Titer Labs noted - Treatment Hospital Course: Detox Protocol Followed, Detoxed Safely, Responded well, Discharged Condition Good - Medication Discharge Medications: Ambulatory Orders Aspirin [ASA -] 81 mg PO DAILY 11/20/16 Metformin HCl [Glucophage -] 500 mg PO BID 11/20/16 - Diagnosis (1) Opioid dependence on agonist therapy Current Visit: Yes Status: Acute (2) Alcohol dependence with uncomplicated withdrawal Current Visit: Yes Status: Acute (3) Cocaine dependence Current Visit: Yes Status: Chronic Qualifiers: Substance use status: uncomplicated Qualified Code(s): F14.20 - Cocaine dependence, uncomplicated (4) Insomnia Current Visit: Yes Status: Acute Qualifiers: Insomnia type: primary Qualified Code(s): F51.01 - Primary insomnia (5) Diabetes mellitus type II, controlled Current Visit: Yes Status: Chronic Qualifiers: Diabetes mellitus complication status: without complication (6) Nicotine dependence Current Visit: Yes Status: Chronic Qualifiers: Nicotine product type: cigarettes Substance use status: uncomplicated Qualified Code(s): F17.210 - Nicotine dependence, cigarettes, uncomplicated (7) Cannabis abuse Current Visit: Yes Status: Acute - AMA Did Patient Leave Against Medical Advice: No (F/U with your PCP in 1-2 weeks or sooner if warranted)
[2017-10-29 10:53] VITALS: BP 139/88; PULSE 65; TEMP 97.8
== END 2017-10-29 10:30 | disposition home or self-care (01) | DRG 773 ==
LOC: YASAS 09:02 → Y3N 12:06
PROVIDERS: ADMIT Internal Medicine; ATTEND Internal Medicine
PROC: HZ2ZZZZ Detoxification Services for Substance Abuse Treatment (ICD-10-PCS; principal; 2017-10-25)
DX: F10.230 Alcohol dependence with withdrawal, uncomplicated (principal); F11.20 Opioid dependence, uncomplicated; F14.20 Cocaine dependence, uncomplicated; F12.10 Cannabis abuse, uncomplicated; F17.210 Nicotine dependence, cigarettes, uncomplicated; E11.9 Type 2 diabetes mellitus without complications; G47.00 Insomnia, unspecified
CPT/HCPCS: 36415; 80053; 81003; 81015; 82962; 85027; 86593; 93005; 93010

== ENCOUNTER 2019-03-04 14:07 | Inpatient (IN) | payer OTHER ==
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
[2019-03-04] MEDS ORDERED: ACETAMINOPHEN 325 MG TABLET (FP) PO PRN ×2 (15:57)
[2019-03-04] MEDS ORDERED: BISMUTH SUBSALICYLATE 524 MG/30 ML UD PO PRN (15:57)
[2019-03-04] MEDS ORDERED: chlordiazePOXIDE HCL 25 MG CAPSULE PO PRN (15:57)
[2019-03-04] MEDS ORDERED: MENTHOL/PHENOL 1 EACH UD MM PRN (15:57)
[2019-03-04] MEDS ORDERED: hydrOXYzine PAMOATE 25 MG CAPSULE (FP) PO PRN (15:57)
[2019-03-04] MEDS ORDERED: METHOCARBAMOL 500 MG TABLET PO PRN (15:57)
[2019-03-04] MEDS ORDERED: MAGNESIUM CITRATE 300 ML BOTTLE PO PRN (15:57)
[2019-03-04] MEDS ORDERED: MELATONIN 5 MG TABLETS PO PRN (15:57)
[2019-03-04] MEDS ORDERED: IBUPROFEN 400 MG TABLET (FP) PO PRN (15:57)
[2019-03-04] MEDS ORDERED: MAGNESIUM HYDROX 2400MG/30ML ORAL SUSPENSION 30 ML CUP PO PRN (15:57)
[2019-03-04] MEDS ORDERED: MAG HYDROX/AL HYDROX/SIMETH 30 ML UNIT-DOSE CUP PO PRN (15:57)
[2019-03-04] MEDS: chlordiazePOXIDE HCL 25 MG CAPSULE PO SCH ×2 (17:34→22:17)
[2019-03-04] MEDS: THIAMINE HCL 100 MG TABLET (FP) PO SCH (22:18)
[2019-03-05] MEDS: chlordiazePOXIDE HCL 25 MG CAPSULE PO SCH ×4 (06:03→22:31)
[2019-03-05] MEDS: METHADONE HCL 40 MG DISPERSABLE TABLET PO SCH (06:03)
[2019-03-05 09:54] LABS: HEMATOCRIT 38.6 % (35.4-49); HEMOGLOBIN 12.9 GM/dL (11.7-16.9); MCHC 33.3 g/dl (32.0-35.9); MEAN PLT VOLUME 10.2 fl (7.5-11.1); PLATELET COUNT 187 K/MM3 (134-434); RBC 4.29 M/mm3 (4.00-5.60); WHITE BLOOD COUNT 6.1 K/mm3 (4.0-10.0)
[2019-03-05 10:16] LABS: ALBUMIN 3.4 g/dl (3.4-5.0); BILIRUBIN,TOTAL 0.3 mg/dL (0.2-1); CREATININE 0.8 mg/dL (0.55-1.3); POTASSIUM 3.5 mmol/L (3.5-5.1); TOT PROT 6.4 g/dl (6.4-8.2)
[2019-03-05] MEDS: PRENATAL VITAMINS W/ FOLIC ACID TABLET (FP) PO SCH (10:42)
--- NOTE | 2019-03-05 11:15 | PN ---
[facility] CIWA - CIWA Score Nausea/Vomitin-Mild Nausea/No Vomiting Muscle Tremors: 2 Anxiety: 2 Agitation: 3 Paroxysmal Sweats: 1-Minimal Palms Moist Orientation: 1-Uncertain about Date Tacttile Disturbances: 0-None Auditory Disturbances: 0-None Visual Disturbances: 0-None Headache: 1-Very Mild CIWA-Ar Total Score: 11 [facility] Progress Note (SOAP) Subjective: doing better today had methadone 120 mg po this morning tremor otherwise doing well Objective: 03/05/19 11:14 Vital Signs Temperature 97.3 F L 03/05/19 09:15 Pulse Rate 71 03/05/19 09:15 Respiratory Rate 16 03/05/19 09:15 Blood Pressure 125/82 03/05/19 09:15 O2 Sat by Pulse Oximetry (%) Laboratory Last Values WBC 6.1 K/mm3 (4.0-10.0) 03/05/19 07:00 RBC 4.29 M/mm3 (4.00-5.60) 03/05/19 07:00 Hgb 12.9 GM/dL (11.7-16.9) 03/05/19 07:00 Hct 38.6 % (35.4-49) 03/05/19 07:00 MCV 90.0 fl (80-96) 03/05/19 07:00 MCH 30.0 pg (25.7-33.7) 03/05/19 07:00 MCHC 33.3 g/dl (32.0-35.9) 03/05/19 07:00 RDW 14.0 % (11.9-15.9) 03/05/19 07:00 Plt Count 187 K/MM3 (134-434) 03/05/19 07:00 MPV 10.2 fl (7.5-11.1) 03/05/19 07:00 Sodium 142 mmol/L (136-145) 03/05/19 07:00 Potassium 3.5 mmol/L (3.5-5.1) 03/05/19 07:00 Chloride 106 mmol/L (98-107) 03/05/19 07:00 Carbon Dioxide 29 mmol/L (21-32) 03/05/19 07:00 Anion Gap 7 MMOL/L (8-16) L 03/05/19 07:00 BUN 15 mg/dL (7-18) 03/05/19 07:00 Creatinine 0.8 mg/dL (0.55-1.3) 03/05/19 07:00 Est GFR (CKD-EPI)AfAm 114.13 03/05/19 07:00 Est GFR (CKD-EPI)NonAf 98.47 03/05/19 07:00 POC Glucometer 116 UNITS (80-120) 03/04/19 15:41 Random Glucose 94 mg/dL (74-106) 03/05/19 07:00 Calcium 9.0 mg/dL (8.5-10.1) 03/05/19 07:00 Total Bilirubin 0.3 mg/dL (0.2-1) 03/05/19 07:00 AST 20 U/L (15-37) 03/05/19 07:00 ALT 23 U/L (13-61) 03/05/19 07:00 Alkaline Phosphatase 77 U/L (45-117) 03/05/19 07:00 Total Protein 6.4 g/dl (6.4-8.2) 03/05/19 07:00 Albumin 3.4 g/dl (3.4-5.0) 03/05/19 07:00 lab noted Assessment: 03/05/19 11:15 alcohol withdrawal sx Plan: continue detox
[2019-03-05] MEDS: THIAMINE HCL 100 MG TABLET (FP) PO SCH (22:31)
[2019-03-06] MEDS: METHADONE HCL 40 MG DISPERSABLE TABLET PO SCH (05:13)
[2019-03-06] MEDS: chlordiazePOXIDE HCL 25 MG CAPSULE PO SCH ×2 (05:13→10:42)
[2019-03-06] MEDS: PRENATAL VITAMINS W/ FOLIC ACID TABLET (FP) PO SCH (09:57)
--- NOTE | 2019-03-06 12:24 | PN ---
[facility] CIWA - CIWA Score Nausea/Vomitin-Mild Nausea/No Vomiting Muscle Tremors: 2 Anxiety: 2 Agitation: 2 Paroxysmal Sweats: No Perspiration Orientation: 0-Oriented Tacttile Disturbances: 0-None Auditory Disturbances: 0-None Visual Disturbances: 0-None Headache: 1-Very Mild CIWA-Ar Total Score: 8 [facility] Progress Note (SOAP) Subjective: feeling better today ambulating on hallway social with peers in day room Objective: 03/06/19 12:23 Vital Signs Temperature 98.2 F 03/06/19 09:51 Pulse Rate 63 03/06/19 09:51 Respiratory Rate 20 03/06/19 09:51 Blood Pressure 132/80 03/06/19 09:51 O2 Sat by Pulse Oximetry (%) Laboratory Last Values WBC 6.1 K/mm3 (4.0-10.0) 03/05/19 07:00 RBC 4.29 M/mm3 (4.00-5.60) 03/05/19 07:00 Hgb 12.9 GM/dL (11.7-16.9) 03/05/19 07:00 Hct 38.6 % (35.4-49) 03/05/19 07:00 MCV 90.0 fl (80-96) 03/05/19 07:00 MCH 30.0 pg (25.7-33.7) 03/05/19 07:00 MCHC 33.3 g/dl (32.0-35.9) 03/05/19 07:00 RDW 14.0 % (11.9-15.9) 03/05/19 07:00 Plt Count 187 K/MM3 (134-434) 03/05/19 07:00 MPV 10.2 fl (7.5-11.1) 03/05/19 07:00 Sodium 142 mmol/L (136-145) 03/05/19 07:00 Potassium 3.5 mmol/L (3.5-5.1) 03/05/19 07:00 Chloride 106 mmol/L (98-107) 03/05/19 07:00 Carbon Dioxide 29 mmol/L (21-32) 03/05/19 07:00 Anion Gap 7 MMOL/L (8-16) L 03/05/19 07:00 BUN 15 mg/dL (7-18) 03/05/19 07:00 Creatinine 0.8 mg/dL (0.55-1.3) 03/05/19 07:00 Est GFR (CKD-EPI)AfAm 114.13 03/05/19 07:00 Est GFR (CKD-EPI)NonAf 98.47 03/05/19 07:00 POC Glucometer 116 UNITS (80-120) 03/04/19 15:41 Random Glucose 94 mg/dL (74-106) 03/05/19 07:00 Calcium 9.0 mg/dL (8.5-10.1) 03/05/19 07:00 Total Bilirubin 0.3 mg/dL (0.2-1) 03/05/19 07:00 AST 20 U/L (15-37) 03/05/19 07:00 ALT 23 U/L (13-61) 03/05/19 07:00 Alkaline Phosphatase 77 U/L (45-117) 03/05/19 07:00 Total Protein 6.4 g/dl (6.4-8.2) 03/05/19 07:00 Albumin 3.4 g/dl (3.4-5.0) 03/05/19 07:00 RPR Titer Nonreactive (NONREACTIVE) 03/05/19 07:00 lab noted Assessment: 03/06/19 12:23 alcohol withdrawal sx Plan: continue detox
[2019-03-06] MEDS ORDERED: chlordiazePOXIDE HCL 10 MG CAPSULE PO PRN (17:00)
[2019-03-06] MEDS ORDERED: chlordiazePOXIDE HCL 10 MG CAPSULE PO SCH (17:00)
[2019-03-06 17:55] VITALS: BP 143/92; PULSE 67; TEMP 98.4
[2019-03-07] MEDS ORDERED: chlordiazePOXIDE HCL 10 MG CAPSULE PO SCH (17:00)
== END 2019-03-06 18:05 | disposition left against medical advice (07) | DRG 770 ==
LOC: YASAS 14:07 → Y3N 15:47
PROVIDERS: ADMIT Surgery; ATTEND Surgery
PROC: HZ2ZZZZ Detoxification Services for Substance Abuse Treatment (ICD-10-PCS; principal; 2019-03-04)
DX: F10.230 Alcohol dependence with withdrawal, uncomplicated (principal); F11.20 Opioid dependence, uncomplicated; F14.20 Cocaine dependence, uncomplicated; F17.210 Nicotine dependence, cigarettes, uncomplicated; E86.0 Dehydration; R73.03 Prediabetes
CPT/HCPCS: 36415; 80053; 82962; 85027; 86593

== ENCOUNTER 2019-03-31 13:03 | Inpatient (IN) | payer OTHER ==
[2019-03-31 17:02] VITALS: BMI 32.2
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
[2019-03-31] MEDS ORDERED: NICOTINE POLACRILEX 2 MG GUM BUC PRN (20:35)
[2019-03-31] MEDS ORDERED: MAGNESIUM CITRATE 300 ML BOTTLE PO PRN (20:35)
[2019-03-31] MEDS ORDERED: chlordiazePOXIDE HCL 25 MG CAPSULE PO PRN (20:35)
[2019-03-31] MEDS ORDERED: IBUPROFEN 400 MG TABLET (FP) PO PRN (20:35)
[2019-03-31] MEDS ORDERED: METHOCARBAMOL 500 MG TABLET PO PRN (20:35)
[2019-03-31] MEDS ORDERED: BISMUTH SUBSALICYLATE 524 MG/30 ML UD PO PRN (20:35)
[2019-03-31] MEDS ORDERED: MENTHOL/PHENOL 1 EACH UD MM PRN (20:35)
[2019-03-31] MEDS ORDERED: MAG HYDROX/AL HYDROX/SIMETH 30 ML UNIT-DOSE CUP PO PRN (20:35)
[2019-03-31] MEDS ORDERED: MAGNESIUM HYDROX 2400MG/30ML ORAL SUSPENSION 30 ML CUP PO PRN (20:35)
[2019-03-31] MEDS ORDERED: chlordiazePOXIDE HCL 25 MG CAPSULE PO ONE (20:35)
[2019-03-31] MEDS ORDERED: ACETAMINOPHEN 325 MG TABLET (FP) PO PRN ×2 (20:35)
[2019-03-31] MEDS ORDERED: guaiFENesin 200 MG/10 ML 10 ML UNIT-DOSE CUPS PO PRN (20:35)
[2019-03-31] MEDS: THIAMINE HCL 100 MG TABLET (FP) PO SCH (22:36)
[2019-03-31] MEDS: chlordiazePOXIDE HCL 25 MG CAPSULE PO SCH (22:36)
[2019-04-01] MEDS: chlordiazePOXIDE HCL 25 MG CAPSULE PO SCH ×4 (06:45→22:03)
[2019-04-01 09:47] LABS: PH,URINE 5.5 (5.0-8.0); URINE APPEARANCE TURBID; URINE BILIRUBIN NEGATIVE (NEGATIVE); URINE COLOR DK YELLOW; URINE GLUCOSE (UA) NEGATIVE (NEGATIVE); URINE KETONE TRACE (NEGATIVE); URINE LEUK ESTERASE NEGATIVE (NEGATIVE); URINE NITRITE NEGATIVE (NEGATIVE); URINE PROTEIN NEGATIVE (NEGATIVE)
[2019-04-01] MEDS: PRENATAL VITAMINS W/ FOLIC ACID TABLET (FP) PO SCH (10:10)
[2019-04-01] MEDS: NICOTINE 21 MG/24 HOURS TOPICAL PATCH TD SCH (10:10)
[2019-04-01 10:21] LABS: HEMATOCRIT 40.7 % (35.4-49); HEMOGLOBIN 13.7 GM/dL (11.7-16.9); MCH 30.1 pg (25.7-33.7); MCHC 33.6 g/dl (32.0-35.9); MEAN CELL VOLUME 89.5 fl (80-96); MEAN PLT VOLUME 10.2 fl (7.5-11.1); PLATELET COUNT 211 K/MM3 (134-434); RBC 4.54 M/mm3 (4.00-5.60); WHITE BLOOD COUNT 6.2 K/mm3 (4.0-10.0)
[2019-04-01 10:54] LABS: ALBUMIN 3.4 g/dl (3.4-5.0); BILIRUBIN,TOTAL 0.4 mg/dL (0.2-1); BLOOD UREA NITROGEN 14.2 mg/dL (7-18); CALCIUM 8.8 mg/dL (8.5-10.1); CREATININE 0.8 mg/dL (0.55-1.3); POTASSIUM 3.8 mmol/L (3.5-5.1); TOT PROT 6.8 g/dl (6.4-8.2)
[2019-04-01] MEDS: METHADONE HCL 40 MG DISPERSABLE TABLET PO SCH (11:48)
--- NOTE | 2019-04-01 15:08 | PN ---
S CIWA - CIWA Score Nausea/Vomitin (STOMACH CRAMPING.) Muscle Tremors: None Anxiety: 4-Mod. Anxious/Guarded Agitation: 2 Paroxysmal Sweats: 3 Orientation: 0-Oriented Tacttile Disturbances: 0-None Auditory Disturbances: 1-Very Mild Visual Disturbances: 2-Mild Sensitivity Headache: 0-None Present CIWA-Ar Total Score: 14 BHS Progress Note (SOAP) Subjective: Stomach Cramping, Sweating, Interrupted Sleep, Body Aches. Objective: PATIENT A & O X 3, OBSERVED AMBULATING ON UNIT UNASSISTED. IN NO ACUTE DISTRESS. 04/01/19 15:06 Vital Signs Temperature 96.3 F L 04/01/19 13:51 Pulse Rate 74 04/01/19 13:51 Respiratory Rate 18 04/01/19 13:51 Blood Pressure 150/90 04/01/19 13:51 O2 Sat by Pulse Oximetry (%) Laboratory Tests 04/01/19 04/01/19 04/01/19 07:00 07:00 08:45 WBC 6.2 RBC 4.54 Hgb 13.7 Hct 40.7 MCV 89.5 MCH 30.1 MCHC 33.6 RDW 14.0 Plt Count 211 MPV 10.2 Sodium 142 Potassium 3.8 Chloride 106 Carbon Dioxide 32 Anion Gap 4 L BUN 14.2 Creatinine 0.8 Est GFR (CKD-EPI)AfAm 114.13 Est GFR (CKD-EPI)NonAf 98.47 Random Glucose 81 Calcium 8.8 Total Bilirubin 0.4 AST 19 ALT 27 Alkaline Phosphatase 84 Total Protein 6.8 Albumin 3.4 Urine Color Dk yellow Urine Appearance Turbid Urine pH 5.5 Ur Specific [place] 1.029 Urine Protein Negative Urine Glucose (UA) Negative Urine Ketones Trace H Urine Blood Negative Urine Nitrite Negative Urine Bilirubin Negative Urine Urobilinogen 1.0 Ur Leukocyte Esterase Negative LABS NOTED. RPR RESULT PENDING. 04/01/19 15:07 Assessment: 04/01/19 15:07 WITHDRAWAL SYMPTOMS. ELEVATED BLOOD PRESSURE. Plan: CONTINUE DETOX. CONTINUE TO MONITOR BLOOD PRESSURE (PATIENT DENIES HISTORY OF HYPERTENSION ON DETOX ADMISSION).
[2019-04-01] MEDS: THIAMINE HCL 100 MG TABLET (FP) PO SCH (22:02)
[2019-04-01] MEDS: MELATONIN 5 MG TABLETS PO PRN (22:03)
[2019-04-02] MEDS: METHADONE HCL 40 MG DISPERSABLE TABLET PO SCH (05:07)
[2019-04-02] MEDS: chlordiazePOXIDE HCL 25 MG CAPSULE PO SCH ×3 (05:07→17:02)
--- NOTE | 2019-04-02 08:45 | EKG ---
Test Reason : Blood Pressure : / mmHG Vent. Rate : 052 BPM Atrial Rate : 052 BPM P-R Int : 192 ms QRS Dur : 090 ms QT Int : 496 ms P-R-T Axes : 020 044 056 degrees QTc Int : 461 ms SINUS BRADYCARDIA OTHERWISE NORMAL ECG WHEN COMPARED WITH ECG OF 25-OCT-2017 13:34, NO SIGNIFICANT CHANGE WAS FOUND Confirmed by DARIUSZ NEWTON MD ([id number]) on 04/02/2019 8:45:16 AM Referred By: Confirmed By:DARIUSZ NEWTON MD
[2019-04-02] MEDS: PRENATAL VITAMINS W/ FOLIC ACID TABLET (FP) PO SCH (10:09)
[2019-04-02] MEDS: NICOTINE 21 MG/24 HOURS TOPICAL PATCH TD SCH (10:10)
--- NOTE | 2019-04-02 10:37 | PN ---
S CIWA - CIWA Score Nausea/Vomitin-Mild Nausea/No Vomiting Muscle Tremors: 2 Anxiety: 2 Agitation: 2 Paroxysmal Sweats: 1-Minimal Palms Moist Orientation: 0-Oriented Tacttile Disturbances: 0-None Auditory Disturbances: 0-None Visual Disturbances: 0-None Headache: 1-Very Mild CIWA-Ar Total Score: 9 BHS Progress Note (SOAP) Subjective: pt states feeling better on detox protocol. O: Vital Signs - 24 hr 04/01/19 04/01/19 04/01/19 13:51 18:22 21:29 Temperature 96.3 F L 98.6 F 97.9 F Pulse Rate 74 56 L 55 L Respiratory 18 17 18 Rate Blood Pressure 150/90 104/65 149/75 04/02/19 04/02/19 04/02/19 00:30 03:30 05:48 Temperature 97.6 F Pulse Rate 60 Respiratory 18 18 18 Rate Blood Pressure 174/89 H 04/02/19 04/02/19 07:03 09:29 Temperature 96.7 F L Pulse Rate 60 54 L Respiratory 18 Rate Blood Pressure 137/82 133/84 Laboratory Tests 04/01/19 04/01/19 04/01/19 07:00 07:00 07:00 WBC 6.2 RBC 4.54 Hgb 13.7 Hct 40.7 MCV 89.5 MCH 30.1 MCHC 33.6 RDW 14.0 Plt Count 211 MPV 10.2 Sodium 142 Potassium 3.8 Chloride 106 Carbon Dioxide 32 Anion Gap 4 L BUN 14.2 Creatinine 0.8 Est GFR (CKD-EPI)AfAm 114.13 Est GFR (CKD-EPI)NonAf 98.47 Random Glucose 81 Calcium 8.8 Total Bilirubin 0.4 AST 19 ALT 27 Alkaline Phosphatase 84 Total Protein 6.8 Albumin 3.4 Urine Color Urine Appearance Urine pH Ur Specific [place] Urine Protein Urine Glucose (UA) Urine Ketones Urine Blood Urine Nitrite Urine Bilirubin Urine Urobilinogen Ur Leukocyte Esterase RPR Titer Nonreactive 04/01/19 08:45 WBC RBC Hgb Hct MCV MCH MCHC RDW Plt Count MPV Sodium Potassium Chloride Carbon Dioxide Anion Gap BUN Creatinine Est GFR (CKD-EPI)AfAm Est GFR (CKD-EPI)NonAf Random Glucose Calcium Total Bilirubin AST ALT Alkaline Phosphatase Total Protein Albumin Urine Color Dk yellow Urine Appearance Turbid Urine pH 5.5 Ur Specific [place] 1.029 Urine Protein Negative Urine Glucose (UA) Negative Urine Ketones Trace H Urine Blood Negative Urine Nitrite Negative Urine Bilirubin Negative Urine Urobilinogen 1.0 Ur Leukocyte Esterase Negative RPR Titer a/p: continue alcohol detox protocol, continue methadone MAT- nl labs and VS pt doing well
[2019-04-02] MEDS: THIAMINE HCL 100 MG TABLET (FP) PO SCH (22:15)
[2019-04-02] MEDS: chlordiazePOXIDE HCL 10 MG CAPSULE PO SCH (22:15)
[2019-04-02] MEDS ORDERED: chlordiazePOXIDE HCL 10 MG CAPSULE PO PRN (23:00)
[2019-04-03] MEDS: METHADONE HCL 40 MG DISPERSABLE TABLET PO SCH (05:16)
[2019-04-03] MEDS: chlordiazePOXIDE HCL 10 MG CAPSULE PO SCH ×3 (05:17→17:04)
[2019-04-03] MEDS: PRENATAL VITAMINS W/ FOLIC ACID TABLET (FP) PO SCH (10:21)
[2019-04-03] MEDS: NICOTINE 21 MG/24 HOURS TOPICAL PATCH TD SCH (10:21)
--- NOTE | 2019-04-03 13:06 | PN ---
S CIWA - CIWA Score Nausea/Vomitin-No Nausea/No Vomiting Muscle Tremors: 2 Anxiety: 2 Agitation: 1-Slight > Activity Paroxysmal Sweats: 2 Orientation: 0-Oriented Tacttile Disturbances: 1-Very Mild Itch/Numbness Auditory Disturbances: 0-None Visual Disturbances: 0-None Headache: 0-None Present CIWA-Ar Total Score: 8 BHS Progress Note (SOAP) Subjective: Tremors, Sweating. Patient reports That Current withdrawal Detox Symptoms in General Are Gradually Subsiding in Severity. Objective: PATIENT A & O X 3, OBSERVED AMBULATING ON UNIT UNASSISTED. IN NO ACUTE DISTRESS. 04/03/19 13:09 Vital Signs Temperature 97.6 F 04/03/19 09:31 Pulse Rate 74 04/03/19 09:31 Respiratory Rate 20 04/03/19 09:31 Blood Pressure 141/83 04/03/19 09:31 O2 Sat by Pulse Oximetry (%) Laboratory Tests 04/01/19 04/01/19 04/01/19 07:00 07:00 07:00 WBC 6.2 RBC 4.54 Hgb 13.7 Hct 40.7 MCV 89.5 MCH 30.1 MCHC 33.6 RDW 14.0 Plt Count 211 MPV 10.2 Sodium 142 Potassium 3.8 Chloride 106 Carbon Dioxide 32 Anion Gap 4 L BUN 14.2 Creatinine 0.8 Est GFR (CKD-EPI)AfAm 114.13 Est GFR (CKD-EPI)NonAf 98.47 Random Glucose 81 Calcium 8.8 Total Bilirubin 0.4 AST 19 ALT 27 Alkaline Phosphatase 84 Total Protein 6.8 Albumin 3.4 Urine Color Urine Appearance Urine pH Ur Specific [place] Urine Protein Urine Glucose (UA) Urine Ketones Urine Blood Urine Nitrite Urine Bilirubin Urine Urobilinogen Ur Leukocyte Esterase RPR Titer Nonreactive 04/01/19 08:45 WBC RBC Hgb Hct MCV MCH MCHC RDW Plt Count MPV Sodium Potassium Chloride Carbon Dioxide Anion Gap BUN Creatinine Est GFR (CKD-EPI)AfAm Est GFR (CKD-EPI)NonAf Random Glucose Calcium Total Bilirubin AST ALT Alkaline Phosphatase Total Protein Albumin Urine Color Dk yellow Urine Appearance Turbid Urine pH 5.5 Ur Specific [place] 1.029 Urine Protein Negative Urine Glucose (UA) Negative Urine Ketones Trace H Urine Blood Negative Urine Nitrite Negative Urine Bilirubin Negative Urine Urobilinogen 1.0 Ur Leukocyte Esterase Negative RPR Titer LABS NOTED. Assessment: 04/03/19 13:10 WITHDRAWAL SYMPTOMS. Plan: CONTINUE DETOX. PATIENT SCHEDULED FOR D/C TOMORROW AM.
[2019-04-03] MEDS: THIAMINE HCL 100 MG TABLET (FP) PO SCH (21:40)
[2019-04-03] MEDS: MELATONIN 5 MG TABLETS PO PRN (21:40)
[2019-04-03] MEDS ORDERED: chlordiazePOXIDE HCL 10 MG CAPSULE PO SCH (23:00)
[2019-04-04] MEDS: METHADONE HCL 40 MG DISPERSABLE TABLET PO SCH (05:07)
[2019-04-04 06:04] VITALS: BP 145/87; PULSE 66; TEMP 98.1
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
== END 2019-04-04 08:40 | disposition home or self-care (01) | DRG 773 ==
LOC: YASAS 13:03 → Y3N 21:44
PROVIDERS: ADMIT Surgery; ATTEND Surgery
PROC: HZ2ZZZZ Detoxification Services for Substance Abuse Treatment (ICD-10-PCS; principal; 2019-03-31)
DX: F10.230 Alcohol dependence with withdrawal, uncomplicated (principal); F11.20 Opioid dependence, uncomplicated; F14.20 Cocaine dependence, uncomplicated; R03.0 Elevated blood-pressure reading, without diagnosis of hypertension; R00.1 Bradycardia, unspecified; R26.89 Other abnormalities of gait and mobility; Z87.828 Personal history of other (healed) physical injury and trauma
CPT/HCPCS: 36415; 80053; 81003; 85027; 86593; 93005; 93010